=== PATIENT | male | born 1975 | race Caucasian/White ===

== ENCOUNTER 2020-08-05 08:03 | Outpatient (CLI) | payer OTHER, SELFPAY ==
--- NOTE | 2020-08-05 08:09 | FL_ITS ---
WS: [id number] [place] upper GI w air* [id number] REASON FOR EXAM: K44.9 - Diaphragmatic hernia without obstruction or gangrene FLUOROSCOPY TIME: 1.1 minutes FINDINGS: The ingestion of a barium meal was monitored with intermittent fluoroscopy and spot films with evalua tion from the cervical esophagus to the ligament of Treitz. The proximal and mid esophagus are unremarkable. By history the patient has had a Hkoa fundoplication. There is an elongated communication between t he distal esophagus and the stomach which would appear to be the effect of the Khoa wrap. A very sm all sliding hiatal hernia with minor Schatzki ring is present. Significant reflux was not identified. There were some tertiary contractions in the lower esophagus with minor altered emptying of the esop hagus. The stomach was of normal size and contour and demonstrated a normal fold pattern. The duodenum and duodenal sweep are unremarkable. FL/FL upper GI w air* [id number] IMPRESSION: IMPRESSION: Post Khoa fundoplication (10 years) with findings as above.
== END 2020-08-05 08:04 | disposition home or self-care (01) ==
LOC: RAD 08:04
PROVIDERS: Family Provider Family Medicine; PCP Family Medicine; Visit Provider Surgery
DX: K44.9 Diaphragmatic hernia without obstruction or gangrene (principal)
CPT/HCPCS: 74246

== ENCOUNTER → 2020-10-21 00:01 | Outpatient (BNVA) | payer OTHER, SELFPAY | PROVIDERS: Family Provider Family Medicine; PCP Family Medicine; Visit Provider Surgery | DX: Z01.812 Encounter for preprocedural laboratory examination (principal) | CPT/HCPCS: 87635 ==

== ENCOUNTER 2020-10-26 09:25 | Day surgery (SDC) | payer OTHER, SELFPAY ==
[2020-10-25 13:01] VITALS: BMI 32.5
--- NOTE | 2020-10-26 09:37 | ANES.PREANE2 ---
Pre-Anesthetic Assessment Pre-Anesthetic Assessment: Height/Weight: Height 1.83 m Weight 108.862 kg Preop Diagnosis: hiatal hernia Proposed Procedure: Operation Date: 10/26/20 10:30 Proposed Procedures p EGD 63701 K44.9(Not Applicable) - Adarsh Rendon MD Familial anesthetic complications: NOne Last intake: NPO > 8 hrs Social: Social History: Tobacco and No alcohol Exam: Pre-Anes Outpt Exam: alert, oriented x 3, clear to auscultation bilaterally and regular rate & rhythm Airway: Cervical ROM: WNL MP: 2 Dentition: Partials GI: GI: GERD and Hiatus hernia Comments: IBS Metabolic: Metabolic: Thyroid Neuropsych: Neuropsych: ZAVALETA (takes midodrine) Anesthetic Plan: ASA status: 2 Anesthesia: MAC Risk of > 500 ml blood loss (7ml/kg in children): No PFSH Anesthesia PFSH: Family History Denies family history of Anesthesia complication Bleeding disorder Social History Smoking and tobacco status: current every day smoker cigarettes Data Anesthesia Cardiac Studies: No Data to Display
[2020-10-26 10:20] VITALS: BP 126/79; PULSE 81; RESP 20; TEMP 36.6; O2SAT 96
[2020-10-26] MEDS: sodium chloride 0.9% 1,000 ML 30 ML IV (10:28)
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
[2020-10-26 11:02] VITALS: BP 125/79; PULSE 86; RESP 18; TEMP 36.9; O2SAT 96
--- NOTE | 2020-10-26 11:06 | ANE.PACU2 ---
Inpatient post-anesthesia follow up: Airway intact: Yes Vital signs: Temperature 97.8 F Pulse Rate 81 Respiratory Rate 20 Blood Pressure 126/79 Pulse Oximetry 96 Oxygen Delivery Me thod Room Air Oxygen Flow Rate Fraction of Inspir ed Oxygen Hydration adequate: Yes Nausea and vomiting: No Pain level: 1 Mental status: Baseline
[2020-10-26 11:18] VITALS: BP 110/85; PULSE 77; RESP 18; O2SAT 96
--- NOTE | 2020-10-26 16:00 | ANE.PACU2 ---
Inpatient post-anesthesia follow up: Airway intact: Yes Vital signs: Temperature 98.5 F Pulse Rate 77 Respiratory Rate 18 Blood Pressure 110/85 Pulse Oximetry 96 Oxygen Delivery Me thod Room Air Oxygen Flow Rate Fraction of Inspir ed Oxygen Hydration adequate: Yes Nausea and vomiting: No Pain level: 1 Mental status: Baseline
[2020-10-27 14:33] LABS: H. Pylori / CLO Test Negative
== END 2020-10-26 11:30 | disposition home or self-care (01) ==
PROVIDERS: PCP Family Medicine; Visit Provider Surgery
PROC: 0DJ08ZZ Inspection of Upper Intestinal Tract, Via Natural or Artificial Opening Endoscopic (ICD-10-PCS; CPT 43235; principal; 2020-10-26 10:30)
DX: K21.9 Gastro-esophageal reflux disease without esophagitis (principal); K29.70 Gastritis, unspecified, without bleeding; K29.80 Duodenitis without bleeding; F17.210 Nicotine dependence, cigarettes, uncomplicated
CPT/HCPCS: 43239; 87077; 96360; J2704; J7030

== ENCOUNTER 2021-07-26 08:42 | Day surgery (SDC) | payer OTHER, SELFPAY ==
[2021-07-24 10:16] VITALS: BMI 33.5
--- NOTE | 2021-07-26 09:03 | ANES.PREANE2 ---
Pre-Anesthetic Assessment Pre-Anesthetic Assessment: Height/Weight: Height 1.83 m Weight 112.037 kg Preop Diagnosis: Change in bowel movement Proposed Procedure: Operation Date: 07/26/21 10:30 Proposed Procedures p Colonoscopy 93828 R19.4(Not Applicable) - Adarsh Rendon MD Was Beta Cortes taken within 24 hours: Yes Was Clonidine taken within 24 hours: N/A Social: Social History: Tobacco and No alcohol Exam: Pre-Anes Outpt Exam: alert, oriented x 3 and regular rate & rhythm Airway: Submandibular: WNL Cervical ROM: WNL MP: 2 Dentition: Chipped Additional comments: Poor dentition, missing several Pulmonary: Pulmonary: COPD CV/HEM: CV/HEM: HTN GI: GI: GERD Metabolic: Metabolic: Morbid obesity Anesthetic Plan: ASA status: 3 Anesthesia: MAC Risk of > 500 ml blood loss (7ml/kg in children): No PFSH Anesthesia PFSH: Medical History Change in bowel habit Gastritis Family History Denies family history of Anesthesia complication Bleeding disorder Social History Smoking and tobacco status: current every day smoker cigarettes Data Anesthesia Cardiac Studies: No Data to Display
[2021-07-26 09:23] VITALS: BP 138/82; PULSE 93; RESP 16; TEMP 36.3; O2SAT 96
[2021-07-26] MEDS: sodium chloride 0.9% 1,000 ML 30 ML IV (09:31)
--- NOTE | 2021-07-26 09:39 | P.HP_ITS ---
Same Day Surgery H&P Indication for Procedure/HPI DATE OF PROCEDURE: July 26, 2021 CHIEF COMPLAINT/INDICATIONFOR SURGICAL PROCEDURE: Change in bowel habits PREOP DIAGNOSIS: Change in bowel movement PLANNED PROCEDRUE: Operation Date: 07/26/21 10:30 Proposed Procedures p Colonoscopy 51628 R19.4(Not Applicable) - Adarsh Rendon MD 06/05/2021 This is a pleasant 56 years old gentleman has history of colonoscopy 8 years ago, patient reports no history of colon cancer or bleeding per rectum yet there is a component of change in bowel movements. Without obvious explanation. Interim history 07/26/2021 Patient comes today for colonoscopy ROS All systems have been reviewed negative except as per the above or per problem list Medications/Allergies* Home Medications Medication Instructions Recorded Confirmed Type Vitamin D3 25 mcg PO DAILY 10/25/20 06/07/21 History cyclobenzaprine 10 mg PO TID PRN 10/25/20 07/26/21 History dicyclomine 10 mg PO DAILY PRN 10/25/20 07/26/21 History levothyroxine 75 mcg PO DAILY 10/25/20 07/26/21 History loratadine 10 mg PO DAILY 10/25/20 07/26/21 History midodrine 5 mg PO TID 10/25/20 07/26/21 History omeprazole 20 mg PO DAILY 10/25/20 07/26/21 History promethazine 50 mg PO TID PRN 10/25/20 07/26/21 History propranolol 80 mg tablet 80 mg PO DAILY tab 06/05/21 07/26/21 History Allergies/Adverse Reactions Allergy/AdvReac Type Severity Reaction Status Date / Time Penicillins Allergy Severe ADR-Itching Verified 06/07/21 17:06 Current Medications: Generic Name Dose Route Start Last Admin Trade Name Freq PRN Reason Stop Dose Admin Sodium Chloride 1,000 mls @ 30 mls/hr 07/26/21 09:00 07/26/21 09:31 Sodium Chloride 0.9% IV 30 mls/hr .Q24H JAZMINE Administration Pertinent History/Comorbid Conditions* Medical History (Updated 06/07/21 @ 17:06 by Adarsh Rendon MD) Change in bowel habit Gastritis Family History (Updated 08/01/20 @ 11:15 by Leah Suero RN) Denies family history of Anesthesia complication Bleeding disorder Social History Smoking and tobacco status: current every day smoker cigarettes Pertinent Exam Findings alert, oriented x 3, regular rate & rhythm and procedure specific exam findings (Abdominal examination nontender nondistended soft) Recommendations Surgery/Procedure today (Colonoscopy with possible biopsy and possible polypectomy) Other Plans: Plan of care; After thorough history and physical examination and reviewing the chart, plan to perform screening colonoscopy. I discussed with the patient in details the risks,benefits,alternatives and indications.The risk of aspiration, bleeding, soft tissue injury, perforation of the colon and other potential concomitant complications were explained to the patient in details,also the potential need for Laproscoy/Laparotomy to repair any related complications including but not limited to colectomy and or Closotomy.The patient understood this well and did agree to proceed. Rationale was carefully and clearly discussed with the patient.Appropriate informed consent have been reviewed and signed All questions have been answered and all concerns have been addressed to patient's satisfaction. Verbal and written Instructions were given to the patient for colonoscopy prep Coding Level of Care Code Acute Glue Maker Bone for Ava Granado
[2021-07-26 10:30] VITALS: BP 134/96; PULSE 91; RESP 20; TEMP 36.3; O2SAT 95
[2021-07-26 10:40] VITALS: BP 139/97; PULSE 86; RESP 18; O2SAT 96
--- NOTE | 2021-07-26 14:56 | ANE.PACU2 ---
Inpatient post-anesthesia follow up: Airway intact: Yes Vital signs: Temperature 97.4 F Pulse Rate 86 Respiratory Rate 18 Blood Pressure 139/97 Pulse Oximetry 96 Oxygen Delivery Me thod Room Air Oxygen Flow Rate 3 Fraction of Inspir ed Oxygen Hydration adequate: Yes Nausea and vomiting: No Pain level: 1 Mental status: Baseline
== END 2021-07-26 10:55 | disposition home or self-care (01) ==
PROVIDERS: PCP Family Medicine; Visit Provider Surgery
PROC: 0DJD8ZZ Inspection of Lower Intestinal Tract, Via Natural or Artificial Opening Endoscopic (ICD-10-PCS; CPT 45378; principal; 2021-07-26 10:30)
DX: R19.4 Change in bowel habit (principal); F17.210 Nicotine dependence, cigarettes, uncomplicated; J44.9 Chronic obstructive pulmonary disease, unspecified; I10 Essential (primary) hypertension; K21.9 Gastro-esophageal reflux disease without esophagitis; E66.01 Morbid (severe) obesity due to excess calories; Z68.33 Body mass index [BMI] 33.0-33.9, adult
CPT/HCPCS: 45378; 96360; J2704; J7030

== ENCOUNTER 2022-06-21 12:33 | Outpatient (CLI) | payer OTHER, SELFPAY ==
--- NOTE | 2022-06-21 | ECG_ITS ---
[facility] Test Date: 2022-06-21 Pat Name: Dion Bailey Department: Room: Gender: Male Airline Flight Attendant: : 1975 Requested By: Nevaeh Burroughs Order Number: [id number] Jenna MD: Yesenia Cheng M.D. Interpretive Statements NAME OF STUDY: TREADMILL STRESS TEST INDICATION: Shortness of Breath, PROCEDURE: At the baseline, the patient's blood pressure was 137/87 with a heart rate of 85. The baseline electrocardiogram showed normal sinus rhythm with nonspecific T wave changes in the inferolateral leads. Possible old lateral wall [place]. The patient exercised for 9 minutes and 1 second on a standard Max protocol. Patient attained a maximum heart rate of 148 beats per minute(86% of the maximum predicted heart rate) with a blood pressure at the peak exercise of 211/62 mm Hg. The EKG at the peak exercise revealed around [address] depressions in leads II, III, aVF, V5 and V6.. Patient did not have any chest pain or any significant cardiac arrhythmias with the exercise During the recovery phase, there were no new changes. The EKG reverted almost back to baseline. Blood pressure at the end of the recovery phase was 172/81 mm Hg with a heart rate of 102 per minute. CONCLUSION: 1. Abnormal EKG response to treadmill exercise suggesting inferolateral wall ischemia 2. No exercise-induced chest pain or cardiac arrhythmia. Hypertensive response to exercise was noted. 3. Fair exercise tolerance, attained a maximum of 10.2 METs Electronically Signed On 06-29-2022 7:29:05 CDT by Yesenia Cheng M.D. [email or web address]
[2022-06-21 13:06] VITALS: BMI 34.4
[2022-06-21 13:55] VITALS: BP 172/81; PULSE 99
== END 2022-06-21 12:34 | disposition home or self-care (01) ==
LOC: CDL 12:36
PROVIDERS: PCP Family Medicine; Visit Provider Family Medicine
DX: R06.02 Shortness of breath (principal)
CPT/HCPCS: 93017

== ENCOUNTER → 2022-07-30 13:07 | Outpatient (BNVA) | payer OTHER, SELFPAY | PROVIDERS: PCP Family Medicine; Visit Provider Internal Medicine | DX: R07.9 Chest pain, unspecified (principal); R06.00 Dyspnea, unspecified; R94.39 Abnormal result of other cardiovascular function study | CPT/HCPCS: 93005; 99204 ==

== ENCOUNTER 2022-08-09 08:44 | Outpatient (CLI) | payer OTHER, SELFPAY ==
[2022-08-09] VITALS (15 sets, daily range): BP systolic 120–149; BP diastolic 83–102; PULSE 65–85; RESP 12–18; TEMP 37; O2SAT 93–96; BMI 34.2
[2022-08-09] MEDS: diphenhydrAMINE 50 mg Capsule PO (09:30)
[2022-08-09 09:31] LABS: Basophils # 0.1 10^3/uL (0.0-0.1); Basophils % 0.7 %; Eosinophils # 0.2 10^3/uL (0.0-0.8); Eosinophils % 1.8 %; Hematocrit 44.9 % (42.0-52.0); Hemoglobin 14.8 g/dL (11.7-16.6); Lymphocytes # 4.2 10^3/uL (0.8-4.8); Lymphocytes % 41.2 %; Mean Corpuscular Hemoglobin 30.6 pg (28.0-34.0); Mean Platelet Volume 8.9 fL (7.4-10.4); Monocytes # 0.8 10^3/uL (0.2-0.9); Monocytes % 7.8 %; Neutrophils # 4.88 10^3/uL (1.8-7.7); Neutrophils % 48.3 %; Nucleated Red Blood Cells % 0 %; Platelet Count 242 10^3/cmm (130-400); Red Blood Count 4.83 10^6/uL (4.1-5.3); Red Cell Distribution Width 12.9 % (12.1-15.1); White Blood Count 10.1 10^3/uL (4.0-10.0)
[2022-08-09 09:48] LABS: INR 1.01 (0.8-1.2)
[2022-08-09 09:50] LABS: Anion Gap 18.1 (5-19); Blood Urea Nitrogen 21 mg/dL (6-20); Calcium 9.2 mg/dL (8.5-10.5); Carbon Dioxide 24 mmol/L (22-29); Chloride 99 mmol/L (98-107); Glomerular Filtration Rate 103.2 mL/min (90-130); Glucose 112 mg/dL (65-115); Osmolality Calculated 288 mOsm/kg (285-295); Potassium 4.1 mmol/L (3.5-5.1); Sodium 137 mmol/L (136-145)
--- NOTE | 2022-08-09 09:57 | XACV_ITS ---
Exam Room: 2 Ht: 183 cm Wt: 114 kg BSA: 2.45 m2 Gender: Male : 1975 Any Known Allergies: Other Exam Priority: Routine Procedure(s): Procedure Description: Diagnostic procedure Procedure Description: Left Heart Catheterization Procedure Description: Left ventriculography Procedure Description: Coronary Angiography Diagnostic Cath Status: Elective Diagnostic Findings * INDICATION: Chest pain/abnormal stress test. * No significant disease noted in the Left Main, Left Anterior Descending, Right, or Circumflex coronary arteries. * Coronary angiography shows right dominance. Conclusions 1. No significant disease noted in the Left Main, Left Anterior Descending, Right, or Circumflex coronary arteries. 2. Normal left ventricular systolic function. Ejection fraction of 55%. Recommendations * Aggressive risk factor modification. * Outpatient cardiology follow up in 4 weeks. Interventional RX Recommendation: medical therapy and/or counseling Diagnostic RX Recommendation: medical therapy and/or counseling Anticoagulation: Heparin Ventriculography Ejection Fraction: 55.0 % Pressures Phase:Rest AO : 108 / 88 ( 98 ) @ 10:19:00 AM 102 / 85 ( 93 ) @ 10:19:00 AM 113 / 88 ( 101 ) @ 10:21:00 AM 132 / 85 ( 108 ) @ 10:28:00 AM 138 / 82 ( 105 ) @ 10:28:00 AM LV : 131 / 7 / 27 @ 10:27:00 AM 140 / 10 / 30 @ 10:28:00 AM 140 / 7 / 28 @ 10:28:00 AM Valves Phase:DefaultPhase AV : 8.0 @ 10:34:58 AM AV Mean Gradient: 11.0 @ 10:34:58 AM 11.0 @ 10:34:58 AM Clinical Evaluation EBL: 5mL-10mL Procedural Details Procedure Consent Obtained. Pre-Procedure Time Out. Identified patient by full name and date of as verbalized by the patient/guarantor. Does the consent match the physician's order: Yes. Accurate & Complete Informed Consent: Yes. Inpatient/Outpatient History & Physical on Chart: Yes. If H&P is completed, is and addenduem needed: No. Visualize and Verify Site with Patient/Guarantor: N/A. Relevant Radiology Images available: Yes. The risks, benefits, and alternatives of sedation and/or procedure were discussed by physician. The patient agrees to continue. Procedure started. [facility] Clinical Fraility Score: 3: Managing Well. Contract Runner Indications: New Onset Angina. Chest Pain Symptom Assessment: Typical Angina Symptoms. Cardiovascular Instability: No. Correct patient, site and procedure confirmed by cath team. PERRLA. Strong, equal hand license distributor bilaterally. Lungs clear x 5 lobes. IV Site on Arrival: 20 gauge in the left anticubital. IV Fluids: 0.9% NaCl at KVO. 0 mL infused prior to lab technologist. Pre Procedural Pulses: bilateral dorsalis pedis was 3+. Pre Procedural Pulses: bilateral posterior tibial was 3+. Pre Procedural Pulses: bilateral radial was 3+. Oxygen started at 2liters/min via nasal canula. right groin was prepped with chloroprep then draped in the usual sterile fashion. right radial was prepped with chloroprep then draped in the usual sterile fashion. Physician notified. Baseline sample Acquired. HR: 102 BPM. Patient's family unavailable. Equipment: 6F - Radial. Cardiac Cath Pack. ACIST Manifold Kit Model BT 2000. Heparinized Saline (2 units/mL), 1000 mL bag. 0.035 260cm exchange J wire. Physician arrived. Physician scrubbed in. Immediate Pre-Procedure Time Out. Correct Patient: Yes; Correct Procedure: Yes; Correct Site: Yes; Correct Patient Position: Yes; Correct Supplies: Yes; Dried Flammable Prep: Yes; Blood Products Available: N/A;. Ce Harman RN, SNOW FENCE ERECTOR was relieved by RT Timbo(R) as monitoring person. Lidocaine 1% infiltrated to the right radial. Arterial access obtained. A 5 croatian TIG catheter in over wire. Multiple views taken of left coronary artery. Catheter redirected to the RCA. Catheter removed over the exchange wire. A 6 croatian JR4 catheter in over wire. Multiple views taken of right coronary artery. Catheter removed over the exchange wire. EDP Sample taken: LV 131/7,27; HR: 81 BPM; SpO2: 96%. A 5 croatian Angled Pig catheter in over wire. LV gram performed in CUELLO @ 10 mL/second for a total of 30 mL. EDP Sample taken: LV 140/10,30; HR: 81 BPM; SpO2: 96%. Pullback taken: LV 140/7,28; AO 132/85(108); Mean: 11mmHg, Peak to Peak: 8mmHg, SEP: 18sec/min; HR: 80 BPM; SpO2: 97%. Catheter removed over the exchange wire. A TR Band was successful obtaining hemostatsis at the Right Radial artery insertion site. Post Procedure: Pulses reassessed and unchanged. PERRLA. Strong, equal hand license distributor bilaterally. No VTE prophylaxis required. Medication's Wasted: Nitro = 49.8 mg. Medication's Wasted: Heparin = 1000 units. Total IV fluids: 25 mL. Post-op diagnosis: Non obstructive CAD. Complications: None. Estimated blood loss: 5mL-10mL. Responsiveness - Normal response to verbal stimuli; alert and oriented, PERRLA. Airway - Unaffected, no intervention required; spontaneous ventilation. Circulation: W/N/L, pulses unchanged. Nausea/Vomiting: No. Procedure completed. Vital chart was stopped. Patient transferred by wheelchair to CPRU. Access Site Site: Right Radial artery Sheath Size: 6 Fr Hemostasis Method: TR Band Hemostasis Success: Successful Procedure Medications Start: 10:07 AM Stop: 10:07 AM Medication: Versed Amount: 1 mg Route: I.V. Start: 10:07 AM Stop: 10:07 AM Medication: Fentanyl Amount: 50 mcg Route: I.V. Start: 10:16 AM Stop: 10:16 AM Medication: Nitrogylcerin Amount: 200 mcg Route: I.A. Start: 10:18 AM Stop: 10:18 AM Medication: Heparin Amount: 5000 units Route: I.V. Start: 10:28 AM Stop: 10:28 AM Medication: Versed Amount: 1 mg Route: I.V. Start: 10:28 AM Stop: 10:28 AM Medication: Fentanyl Amount: 50 mcg Route: I.V. I, the attending physician, have reviewed and verified all procedure medications. Yes, all medications given per verbal order History/Risk Factors Hypertension: Yes Dyslipidemia: No Peripheral Arterial Disease (PAD): No Myocardial Infarction (MT): No Obesity: No Renal Disease: No Tobacco Use: Current/Recent(w/in 1 year) Prior Interventions PCI: No CABG: No Valve Surgery: No Report Signatures Finalized by Murphy Granado MD on 08/09/2022 10:46 AM
--- NOTE | 2022-08-09 10:00 | W.PM.OPSUD ---
Surgery/Procedure H&P Update DATE OF PROCEDURE: August 09, 2022 DATE H&P PERFORMED: 07/30/22 H&P UPDATE INFORMATION: I have reviewed H&P completed within last 30 days, I have examined patient prior to procedure and No changes to prior documentation PREOP DIAGNOSIS: Chest pain/ abnormal stress test PRIMARY INDICATION FOR PROCEDURE: Chest pain/ abnormal stress test PLANNED PROCEDURE: Operation Date: 08/09/22 10:00 Proposed Procedures p Left Heart Cath 67337,R94.39,R07.9(Left) - Murphy Granado M.D Possible percutaneous coronary intervention PATIENT REASSESSED PRIOR TO SEDATION, WITH NO CHANGE NOTED: Yes PHYSICAL EXAM: alert, oriented x 3, clear to auscultation bilaterally and regular rate & rhythm AIRWAY EVAL/ANESTHESIA PLAN: ASA III, Local Anesthesia, Risks, benefits & alternatives of sedation and/or procedure discussed and Patient agrees to continue as planned ADDITIONAL INFORMATION: Moderate sedation
== END 2022-08-09 14:02 | disposition home or self-care (01) ==
PROVIDERS: PCP Family Medicine; Visit Provider Internal Medicine
DX: R07.9 Chest pain, unspecified (principal); R94.39 Abnormal result of other cardiovascular function study; I10 Essential (primary) hypertension; F17.210 Nicotine dependence, cigarettes, uncomplicated; R06.00 Dyspnea, unspecified
CPT/HCPCS: 36415; 80048; 85025; 85610; 93458; 96361; 96365; 99152; 99153; C1769; C1887; C1894; J1644; J2250; J3010; J3490; J7030; Q0163; Q9967

== ENCOUNTER → 2022-08-30 13:08 | Outpatient (BNVA) | payer OTHER, SELFPAY | PROVIDERS: PCP Family Medicine; Visit Provider Nurse Practitioner Family | DX: R07.9 Chest pain, unspecified (principal); F17.210 Nicotine dependence, cigarettes, uncomplicated | CPT/HCPCS: 36415; 80048; 99214 ==

== ENCOUNTER → 2022-11-12 13:44 | Outpatient (BNVA) | payer OTHER, SELFPAY | PROVIDERS: PCP Family Medicine; Visit Provider Internal Medicine | DX: R06.00 Dyspnea, unspecified (principal); R07.9 Chest pain, unspecified; R94.39 Abnormal result of other cardiovascular function study; F17.210 Nicotine dependence, cigarettes, uncomplicated | CPT/HCPCS: 99214 ==

== ENCOUNTER → 2023-08-12 14:52 | Outpatient (BNVA) | payer OTHER, SELFPAY | PROVIDERS: PCP Family Medicine; Visit Provider Internal Medicine | DX: R06.00 Dyspnea, unspecified (principal); R07.9 Chest pain, unspecified; R94.39 Abnormal result of other cardiovascular function study; F17.210 Nicotine dependence, cigarettes, uncomplicated | CPT/HCPCS: 99214 ==

== ENCOUNTER → 2024-12-28 13:21 | Outpatient (BNVA) | payer OTHER, SELFPAY | PROVIDERS: PCP Family Medicine; Visit Provider Internal Medicine | DX: R06.00 Dyspnea, unspecified (principal); R94.39 Abnormal result of other cardiovascular function study | CPT/HCPCS: 99213 ==

== ENCOUNTER 2025-06-09 12:17 | Outpatient (CLI) | payer OTHER, SELFPAY ==
--- NOTE | 2025-06-09 12:21 | US_ITS ---
WS: [id number] ULTRASOUND SOFT TISSUES RIGHT inguinal canal. HISTORY: R INGUINAL HERNIA COMPARISON: None available. TECHNIQUE: 2-D and color Doppler imaging is submitted. Ultrasound was performed of the RIGHT inguinal canal with and without Valsalva maneuver. No peristalsing loop of small bowel or loop of small bowel noted in the inguinal canal. Small amount of omental fat extending into the inguinal canal cannot be excluded. There is no fluid identified. US/US soft tissue/extremity [id number] IMPRESSION: No RIGHT inguinal canal hernia identified by ultrasound. If there is continued concern for hernia consider follow-up by CT.
== END 2025-06-09 12:18 | disposition home or self-care (01) ==
LOC: RAD 12:17
PROVIDERS: PCP Family Medicine; Visit Provider Nurse Practitioner Family
DX: K40.30 Unilateral inguinal hernia, with obstruction, without gangrene, not specified as recurrent (principal)
CPT/HCPCS: 76882

== ENCOUNTER → 2025-06-23 08:06 | Outpatient (BNVA) | payer OTHER, SELFPAY | PROVIDERS: PCP Family Medicine; Visit Provider Student in an Organized Health Care Education/Training Program | DX: K46.9 Unspecified abdominal hernia without obstruction or gangrene (principal) | CPT/HCPCS: 99204 ==

== ENCOUNTER 2025-06-30 16:05 | Outpatient (CLI) | payer OTHER, SELFPAY ==
[2025-06-30] MEDS: iohexol 350 mg/mL 500 mL Btl (per mL) IV (16:28)
--- NOTE | 2025-06-30 16:30 | CT_ITS ---
WS: [id number] CT ABDOMEN AND PELVIS WITH CONTRAST HISTORY: Hernia TECHNIQUE: Imaging performed of the abdomen and pelvis with IV contrast. Single phase imaging of the abdomen. Coronal and sagittal reformats are submitted. All CT scans at [facility] use at least one of these dose optimization techniques: automated exposure control; mA and/or kV adjustment per patient size (includes targeted exams where dose is matched to clinical indication); or iterative reconstruction. IV CONTRAST: Omnipaque 350; 100 mL IV. Oral contrast: No DLP: 845.80 mGy.cm COMPARISON: None available. Lower thorax: 3 mm LEFT perifissural nodule. No masses at the lung bases. Heart is normal size. No hiatal hernia. Liver/biliary system: Normal size with no intrahepatic dilatation. Gallbladder: Normal. No gallstones or wall thickening. No pericholecystic fluid. Pancreas: Normal size pancreas and pancreatic duct. No adjacent inflammation. Spleen: Normal size spleen. No mass or infarct. Adrenal glands: Normal. Right kidney: Normal. Left kidney: Cortical hypodensity 7 mm in the posterior kidney. Probably representing a cyst. Too small to characterize completely. Aorta: Normal. Lymphadenopathy: None. Free fluid: None. GI tract: Normally distended stomach. No small bowel obstruction. Appendix is not identified. There postsurgical changes at the cecum. Patient did not provide a history of a prior appendectomy. No diverticulitis. Abdominal wall: Unremarkable abdominal wall. No hernia. Pelvis: Minimally distended urinary bladder. No free fluid or adenopathy. Patent bilateral inguinal canals containing fat. Bones: Unremarkable. CT/CT abdomen pelvis w con* [id number] IMPRESSION: 1. No acute abdominal or pelvic abnormalities. 2. Appendix appears to be surgically absent. 3. No renal obstruction. 4. Fat-containing bilateral inguinal canals.
== END 2025-06-30 16:06 | disposition home or self-care (01) ==
LOC: RAD 16:05
PROVIDERS: PCP Family Medicine; Visit Provider Student in an Organized Health Care Education/Training Program
DX: K46.9 Unspecified abdominal hernia without obstruction or gangrene (principal); Z90.89 Acquired absence of other organs; K40.20 Bilateral inguinal hernia, without obstruction or gangrene, not specified as recurrent
CPT/HCPCS: 74177

== ENCOUNTER 2025-07-14 08:32 | Day surgery (SDC) | payer OTHER, SELFPAY ==
[2025-07-14] VITALS (9 sets, daily range): BP systolic 114–159; BP diastolic 77–94; PULSE 73–80; RESP 16–18; TEMP 36.2–36.5; O2SAT 95–100; BMI 34.4
--- NOTE | 2025-07-14 09:33 | W.PM.OPSUD ---
Surgery/Procedure H&P Update DATE OF PROCEDURE: July 14, 2025 DATE H&P PERFORMED: 06/23/25 H&P UPDATE INFORMATION: I have reviewed H&P completed within last 30 days, I have examined patient prior to procedure, No changes to prior documentation and Risks and benefits of the procedure reviewed CHANGES TO PREVIOUS DOCUMENTATION: Marked right groin with patient's inpunt in preop area. Patient agrees to proceed with open right inguinal hernia repair. Pt understands risks and benefits. Spouse present. All questions answered. PLANNED PROCEDURE: Operation Date: 07/14/25 10:30 Proposed Procedures p RIGHT Open Inguinal Hernia Repair w/ Mesh 84476 K46.9(Right) - Michel Santos MD
--- NOTE | 2025-07-14 09:58 | ANES.PREANE2 ---
Pre-Anesthetic Assessment Height/Weight: Height 6 ft Weight 254 lb O2 Del Method Room Air 07/14/25 08:40 Preop Diagnosis: Hernia Operation Date: 07/14/25 10:30 Proposed Procedures p RIGHT Open Inguinal Hernia Repair w/ Mesh 94152 K46.9(Right) - Michel Santos MD Was Beta Cortes taken within 24 hours: N/A Was Clonidine taken within 24 hours: N/A Last intake: Intake Last Liquid Date 07/13/25 Last Liquid Time 20:30 Last Solid Date 07/13/25 Last Solid Time 20:30 Social No alcohol and No tobacco Exam alert, oriented x 3, clear to auscultation bilaterally and regular rate & rhythm Airway Submandibular: within normal limits Cervical ROM: within normal limits Mallampati: Class III Comments: Comments: Missing multiple teeth, denies any loose Anesthetic Plan ASA status: 3 Anesthesia: General Other: No prior issues with anesthesia NPO since yesterday evening History of hypothyroidism on Synthroid GERD, on omeprazole Denies any cardiac or pulmonary issues METs greater than 4 Plan for general anesthesia Medications/Allergies Home Medications ?Medication ?Instructions ?Recorded ?Confirmed ?Last Taken ?Type cholecalciferol (vitamin D3) 25 25 mcg PO DAILY 10/25/20 07/14/25 07/13/25 History mcg (1,000 unit) tablet (Vitamin D3) dicyclomine 10 mg capsule 10 mg PO DAILY PRN IBS 10/25/20 07/14/25 07/13/25 History levothyroxine 75 mcg tablet 75 mcg PO DAILY 10/25/20 07/14/25 07/13/25 History loratadine 10 mg capsule 10 mg PO DAILY 10/25/20 07/14/25 07/13/25 History omeprazole 20 mg capsule,delayed 20 mg PO DAILY 10/25/20 07/14/25 07/13/25 History release promethazine 50 mg tablet 50 mg PO TID PRN Nausea 10/25/20 07/14/25 07/13/25 History gabapentin 100 mg capsule 100 mg PO BEDTIME 08/09/22 07/14/25 07/13/25 History midodrine 5 mg tablet 5 mg PO TID 12/28/24 07/14/25 07/13/25 History rizatriptan 5 mg tablet 5 mg PO Q2H PRN Migraine Headache 10/07/14/25 07/11/25 History Allergies Allergy/AdvReac Type Severity Reaction Status Date / Time Penicillins Allergy Severe ADR-Itching Verified 07/14/25 08:46 Influenza Virus Vaccines Allergy Unknown Unknown Verified 07/14/25 08:46 pneumococcal vaccine Allergy Unknown Unknown Verified 07/14/25 08:46 Current Medications Generic Name Dose Route Start Last Admin Trade Name Freq PRN Reason Stop Dose Admin Sodium Chloride 1,000 mls @ 30 mls/hr 07/14/25 09:00 07/14/25 09:16 Sodium Chloride 0.9% IV 07/15/25 08:59 30 mls/hr .Q24H JAZMINE Administration PFSH Anesthesia Medical History Change in bowel habit Gastritis Family History Denies family history of Anesthesia complication Bleeding disorder Social History Smoking and tobacco/nicotine status: current every day tobacco/nicotine user cigarettes
[2025-07-14] MEDS: BUPivacaine 0.25% INJ 10 mL 5 ML INJECTION (10:54)
[2025-07-14] MEDS: lidocaine-epi 1% 20 mL INJ 5 ML INJECTION (10:55)
--- NOTE | 2025-07-14 10:57 | P.OP_ITS ---
Operative Report Date of procedure: July 14, 2025 Pre-op diagnosis: Symptomatic right inguinal hernia Post-op diagnosis: same Post-op findings: Large indirect right inguinal hernia that contains fat only. Repaired using a large plug and patch mesh. Reduced hernia sac and contents into the abdomen. Procedure done: Open right inguinal hernia repair with mesh Implants: Plug and patch mesh size large Specimens removed/disposition: N/A Pathology: none sent Pathology: N/A Surgeon: Michel Santos MD Real Property Evaluator: N/A Anesthesia: General Estimated blood loss (mL): 10 Complications: N/A Findings: Large indirect right inguinal hernia that contains fat only. Repaired using a large plug and patch mesh. Reduced hernia sac and contents into the abdomen. Condition: stable Disposition: same day Brief History: 50-year-old male who presented with a symptomatic right inguinal hernia. Discussed risk and benefits and patient agreed to proceed with open right inguinal hernia repair with mesh. Procedure: Patient brought to the OR and placed supine on the table. SCDs were placed and functioning. Preoperative ancef was administered. General anesthesia was induced. A muñiz catheter was placed without any complications. The right groin was prepped and draped in the usual sterile fashion. Local infiltration at the surgical site was done using lidocaine/bupivacaine with epinephrine. A 7cm incision was carried out over the right inguinal canal. Tissue dissection was carried down to the external oblique fascia using electrocautery. The fascia was incised and the cord structures were identified. Cord structures were dissected of the hernia sac. I identified a large indirect inguinal hernia. The hernia sac was dissected and reduced into the abdomen. It contained fat only. The plug was placed at the site of the deep inguinal ring and the posterior wall of the inguinal canal was reinforced using a mesh patch. The plug was fixed using 2-0 ethibond to the cojoint ligament and inguinal ligament with interrupted sutures. The mesh patch was sutured to the cojoint tendon and the inguinal ligament using interrupted sutures with 2-0 ethibond. The external oblique fascia was closed using 3-0 vicryl. Skin was closed using 4-0 monocryl and surgical glue. Muñiz was removed. The patient woke up from anesthesia and was transferred to PACU without any complications.
--- NOTE | 2025-07-14 12:11 | ANE.PACU2 ---
Inpatient post-anesthesia follow up: Airway intact: Yes Vital signs: Temperature 97.3 F Pulse Rate 78 Respiratory Rate 16 Blood Pressure 124/77 Pulse Oximetry 100 Oxygen Delivery Me thod Room Air Oxygen Flow Rate Fraction of Inspir ed Oxygen Hydration adequate: Yes Nausea and vomiting: No Pain level: 1 Mental status: Baseline
== END 2025-07-14 12:11 | disposition home or self-care (01) ==
PROVIDERS: PCP Family Medicine; Visit Provider Student in an Organized Health Care Education/Training Program
PROC: (CPT 49505; principal; 2025-07-14 10:20)
DX: K40.90 Unilateral inguinal hernia, without obstruction or gangrene, not specified as recurrent (principal); E03.9 Hypothyroidism, unspecified; K21.9 Gastro-esophageal reflux disease without esophagitis; F17.210 Nicotine dependence, cigarettes, uncomplicated
CPT/HCPCS: 49505; 51702; C1781; J1100; J1885; J2405; J2704; J3010; J3373; J3490; J7030; J7050; J9999

== ENCOUNTER → 2025-07-29 11:35 | Outpatient (BNVA) | payer OTHER, SELFPAY | PROVIDERS: PCP Family Medicine; Visit Provider Student in an Organized Health Care Education/Training Program | DX: Z98.890 Other specified postprocedural states (principal) | CPT/HCPCS: 99024 ==